=== PATIENT | female | born 1985 | race Caucasian/White ===

== ENCOUNTER 2016-09-09 16:36 | Emergency (ER) ==
[2016-09-09] MEDS ORDERED: DILAUDID IM ONE (17:48)
[2016-09-09] MEDS ORDERED: PHENERGAN IM ONE (17:48)
[2016-09-09] MEDS ORDERED: NS 1,000 ML IV ONE (17:58)
[2016-09-09] MEDS ORDERED: DILAUDID IV ONE (17:58)
[2016-09-09] MEDS ORDERED: PHENERGAN IV ONE (17:58)
[2016-09-09] MEDS ORDERED: SODIUM CHLORIDE 0.9% INJ ONE (17:58)
--- NOTE | 2016-09-09 18:01 | Diag Imaging Result Document ---
PROCEDURE NAME: WRIST COMPLETE RIGHT - 09/09/2016 RIGHT WRIST THREE VIEWS: FINDINGS: There is a comminuted fracture to the distal radius with compaction and dorsal angulation. There is approximately 1.5 cm of displacement. No definite fracture to the distal ulna. IMPRESSION: Comminuted fracture with dislocation at the wrist.
[2016-09-09] MEDS ORDERED: MARCAINE 0.5% INJ ONE (18:26)
--- NOTE | 2016-09-09 18:26 | PROVIDER DOCUMENTATION ---
HPI-Musculoskeletal Pain/Inj - GENERAL Source: patient - HX OF PRESENT ILLNESS-MUSKULOSKELTAL Quality of Pain: reports: aching Severity in ED: mild Onset/Duration: just prior to arrival Timing: still present Modifying Factors: improves with: nothing Any recent injury?: Yes (fell ) Similar Symptoms Previously?: No Recently seen or treated by another doctor?: No - FALL INJURY Location of Pain/Injury: reports: upper extremity (R wrist) Pain Radiation: reports: no radiation Reason for Fall: reports: lost balance Symptoms prior to fall:: reports: none Loss of Consciousness: no loss of consciousness Injury Associated Symptoms: reports: arm pain (R wrist pain). denies: back/ neck pain, chest pain, diaphoresis, dizziness, headaches, joint pain, muscle aches, nausea, puncture wound, shortness of breath, sensory/motor loss, snap/ crack/pop sensation, pain with inspiration, unable to bear weight, vomiting, weakness, trouble walking - UPPER EXTREMITY PAIN/INJURY Extremities Pain Location: wrist: right (pain ) Context / Method of Injury: reports: fell Associated Symptoms: reports: weakness in upper ext (R wrist). denies: muscle spasms, numbness in upper ext, sensory/motor loss, tingling in upper ext <Francoise Sifuentes - Last Filed: 09/09/16 19:06> <Richmond Kaye - Last Filed: 09/09/16 19:16> - GENERAL Chief Complaint: Extremity Injury Stated Complaint: WRIST INJURY Time Seen by Provider: 09/09/16 17:00 - HX OF PRESENT ILLNESS-MUSKULOSKELTAL Nature of Presenting Problem: Pt is 31 y/o F presents to the ED with R wrist pain. Pt states skating and fell and tried to catch herself with R hand. Pt denies LOC or head injury. (Francoise Sifuentes) Review of Systems - Adult - REVIEW OF SYSTEMS - ADULT Constitutional: denies: chills, fever Eyes: denies: blurred vision, double vision Ears, Nose, Mouth & Throat: denies: ear pain, nose pain, throat pain Cardiovascular: denies: chest pain, heart murmur, irregular heart rate Respiratory: denies: cough, shortness of breath, wheezing Gastrointestinal: denies: abdominal pain, diarrhea, nausea, vomiting Genitourinary: denies: dysuria, hematuria Musculoskeletal: reports: other (R wrist pain). denies: bone pain, joint pain, neck pain Integumentary: denies: hives, itching Neurological: denies: dizziness/vertigo, headache/migraines Psychiatric: reports: no symptoms reported Endocrine: reports: no symptoms reported Hematologic/Lymphatic: reports: no symptoms reported Allergic/Immunologic: reports: no symptoms reported All Other Systems: Reviewed and Negative <Cydney Sifuentesomi - Last Filed: 09/09/16 19:06> Past History - Adult - PAST MEDICAL HISTORY-ADULT Review of Records: reports: Nursing Assessment Review, Medications Reviewed, Social history reviewed & non-contributory. Major Childhood Illnesses: reports: denies history Cardiovascular: reports: denies history Respiratory: reports: denies history Gastrointestinal: reports: denies history Obstetrical/Gynecological: reports: denies history Genitourinary: reports: denies history Musculoskeletal: reports: denies history Neurological: reports: denies history Psychiatric: reports: denies history Endocrine/Immune: reports: denies history Other Conditions: reports: denies history - PRIOR SURGERIES/PROCEDURES Surgical/Procedure History: reports: reviewed, not pertinent - IMMUNIZATION STATUS Childhood Immunizations: See Nurse Assessment Flu Vaccine: See Nurse Assessment - FAMILY HISTORY Family History: reviewed, not pertinent - SOCIAL HISTORY Smoking: denies Substance Use: alcohol Alcohol Use Frequency: occasionally Number of drinks per typical drinking period:: 2 drinks Living Situation: family <Cydney Sifuentesomi - Last Filed: 09/09/16 19:06> Physical Exam-Injury Related - Physical Exam-Injury Related Initial Vital Signs Reviewed: Yes General Appearance: appears well, alert, no apparent distress Eyes: PERRL/EOMI, pink conjunctivae, fundi clear, no AV nicking Head, Ears, Nose, Mouth & Throat: normocephalic/atraumatic, moist mucous membranes, normal ENT inspection, TMs normal, pharynx normal Neck: non-tender, full range of motion, supple, normal inspection Respiratory: chest non-tender, lungs clear, normal breath sounds, no pleuratic chest pain, no respiratory distress, no accessory muscle use Cardiovascular: normal peripheral pulses, regular rate, rhythm, no edema, no gallop, no JVD, no murmur Peripheral Pulses: radial (R): 2+, radial (L): 2+ Abdominal Exam: normal bowel sounds, non tender, soft, no organomegaly, no pulsatile mass Lymphatic: no adenopathy Back Exam: normal inspection, no CVA tenderness, no vertebral tenderness Extremity: normal gait, no pedal edema, tenderness (R wrist). negative: normal range of motion (limited ROM to R wrist) Integumentary: normal color, warm/dry Neurologic: core inserter II-XII nml as tested, grossly normal, no motor/sensory deficits Psych/Mental Status: normal mood/affect, oriented x 3 <Francoise Sifuentes - Last Filed: 09/09/16 19:06> Progress - XRAY 1 XRAY: Right XRAY Study: Wrist Impression: Abnormal XRAY Interpretation: comminuted fracture with dislocation at the wrist - CONSULTS/PCP/HOSPITALIST Notification #1 *Consult/PCP/Hospitalist*: Dr. Bedoya Time Discussed: 18:23 (Dr. Bedoya stated to LEBRON Hinds he would like some traction on fx. ) Reason/Comments: LEBRON Hinds consulted with Dr. Bedoya about Pt Consult Disposition: other <Francoise Sifuentes - Last Filed: 09/09/16 19:06> - XRAY 2 XRAY: Right XRAY Study: Wrist XRAY Interpretation: minimal improvement in alignment <Richmond Kaye - Last Filed: 09/09/16 19:16> - PLAN OF CARE/RESULTS Progress/Plan/Lab Results: Orders Category Date Time Status Saline Loc NOW Care 09/09/16 17:58 Active WRIST COMPLETE RIGHT [RAD] Stat Exams 09/09/16 16:56 Draft CBC WITH DIFF [HEME] Stat Lab 09/09/16 18:00 Ordered COMPREHENSIVE METABOLIC PANEL [CHEM] Stat Lab 09/09/16 18:[address] Or[address]IME WITH INR PL [COAG] Stat Lab 09/09/16 18:[address] [COAG] Stat Lab 09/09/16 18:00 Ordered TYPE & SCREEN [BBK] Stat Lab 09/09/16 18:00 Ordered 0.9% Sodium Chloride Inj [Ns] 1,000 ml Med 09/09/16 17:58 Active IV 999 mls/hr Hydromorphone [Dilaudid] Med 09/09/16 17:48 Discontinued 1 mg IM NOW ONE Hydromorphone [Dilaudid] Med 09/09/16 17:58 Discontinued 1 mg IV NOW ONE Promethazine [Phenergan] Med 09/09/16 17:58 Discontinued 12.5 mg IV NOW ONE Promethazine [Phenergan] Med 09/09/16 17:48 Discontinued 25 mg IM NOW ONE Sodium Chloride 0.9% Med 09/09/16 17:58 Discontinued 10 ml INJ NOW ONE Vital Signs - 24 hr 09/09/16 16:43 Temperature 98.2 F Pulse Rate 71 Respiratory 18 Rate Blood Pressure 127/074 O2 Sat by Pulse 100 Oximetry Laboratory Tests 09/09/16 09/09/16 16:20 16:20 WBC 16.03 H RBC 4.46 Hgb 13.5 Hct 39.8 MCV 89.2 MCH 30.3 MCHC 33.9 RDW Std Deviation 13.1 Plt Count 298 MPV 10.1 Immature Gran % (Auto) 0.2 Neut % (Auto) 84.5 H Lymph % (Auto) 9.7 L [place] % (Auto) 5.2 Eos % (Auto) 0.2 Baso % (Auto) 0.2 Immature Gran # (Auto) 0.04 Neut # (Auto) 13.52 H Lymph # (Auto) 1.56 [place] # (Auto) 0.84 H Eos # (Auto) 0.04 Baso # (Auto) 0.03 PT 12.9 INR 0.94 APTT (Factor Assay) 22.4 L (Francoise Sifuentes) Laboratory Tests 09/09/16 09/09/16 16:20 16:20 WBC 16.03 H RBC 4.46 Hgb 13.5 Hct 39.8 MCV 89.2 MCH 30.3 MCHC 33.9 RDW Std Deviation 13.1 Plt Count 298 MPV 10.1 Immature Gran % (Auto) 0.2 Neut % (Auto) 84.5 H Lymph % (Auto) 9.7 L [place] % (Auto) 5.2 Eos % (Auto) 0.2 Baso % (Auto) 0.2 Immature Gran # (Auto) 0.04 Neut # (Auto) 13.52 H Lymph # (Auto) 1.56 [place] # (Auto) 0.84 H Eos # (Auto) 0.04 Baso # (Auto) 0.03 PT 12.9 INR 0.94 APTT (Factor Assay) 22.4 L Orders Category Date Time Status OCL Splint DIRECTED Care 09/09/16 18:26 Active Saline Loc NOW Care 09/09/16 17:58 Active WRIST COMPLETE RIGHT [RAD] Stat Exams 09/09/16 16:56 Draft CBC WITH DIFF [HEME] Stat Lab 09/09/16 16:20 Completed COMPREHENSIVE METABOLIC PANEL [CHEM] Stat Lab 09/09/16 16:[address] Received [address]IME WITH INR PL [COAG] Stat Lab 09/09/16 16:[address] [COAG] Stat Lab 09/09/16 16:20 Completed TYPE & SCREEN [BBK] Stat Lab 09/09/16 16:20 Received 0.9% Sodium Chloride Inj [Ns] 1,000 ml Med 09/09/16 17:58 Discontinued IV 999 mls/hr Bupivacaine 0.5% [Marcaine 0.5%] Med 09/09/16 18:26 Discontinued 10 ml INJ NOW ONE Bupivacaine Pf 0.5% [Marcaine 0.5% Pf] Med 09/09/16 18:34 Discontinued 10 ml .ROUTE .STK-MED ONE Hydromorphone [Dilaudid] Med 09/09/16 17:48 Discontinued 1 mg IM NOW ONE Hydromorphone [Dilaudid] Med 09/09/16 17:58 Discontinued 1 mg IV NOW ONE Promethazine [Phenergan] Med 09/09/16 17:58 Discontinued 12.5 mg IV NOW ONE Promethazine [Phenergan] Med 09/09/16 17:48 Discontinued 25 mg IM NOW ONE Sodium Chloride 0.9% Med 09/09/16 17:58 Discontinued 10 ml INJ NOW ONE Vital Signs Temp Pulse Resp BP Pulse Ox 09/09/16 16:43 98.2 F 71 18 127/074 100 No Known Allergies Allergy (Verified 09/27/13 15:25) b-Qdcpoog-Slt Estr/Ethin Estra [Seasonique 0.15-0.03-0.01 Tab] 1 each PO Laboratory 09/09/16 09/09/16 16:20 16:20 WBC 16.03 H RBC 4.46 Hgb 13.5 Hct 39.8 MCV 89.2 MCH 30.3 MCHC 33.9 RDW Std Deviation 13.1 Plt Count 298 MPV 10.1 Immature Gran % (Auto) 0.2 Neut % (Auto) 84.5 H Lymph % (Auto) 9.7 L [place] % (Auto) 5.2 Eos % (Auto) 0.2 Baso % (Auto) 0.2 Immature Gran # (Auto) 0.04 Neut # (Auto) 13.52 H Lymph # (Auto) 1.56 [place] # (Auto) 0.84 H Eos # (Auto) 0.04 Baso # (Auto) 0.03 PT 12.9 INR 0.94 APTT (Factor Assay) 22.4 L Neutrophilic leukocytosis is most likely due to a stress response from fracture rather than infectious cause in this context. Minimal improvement after reduction. Pt is NVI. Pain is much improved. Will have her f/u c orthopedics in the morning. She and her are in agreement c this plan. (Richmond Kaye) Procedures - SPLINTING Left Upper Extremity Other Location: wrist Pre-Procedure Neurovascular Exam: Intact Splint Application (Hand-Made): Sugar-Tong Applied By: ED Nurse Assisted By: Mid-level Post Procedure Neurovascular Exam: Intact Procedure Comment: No complications; pt tolerated well - DISLOCATION REDUCTION Right Wrist Other Location: distal radius Time-Out Verification Completed?: Yes Pre-Procedure Neurovascular Exam: Intact Conscious Sedation: No Reduction Attempts: 1 Post Procedure Neurovascular Exam: Intact Post Reduction Film: Deformity Reduced (minimal reduction) Post Reduction Splint Applied?: Yes Procedure Comment: Pt tolerated well. She is NVI. <Richmond Kaye - Last Filed: 09/09/16 19:16> Departure <Francoise Sifuentes - Last Filed: 09/09/16 19:06> - Departure Time of Disposition Order: 19:15 Certified Medical Emergency: Emergent <Richmond Kaye - Last Filed: 09/09/16 19:16> - Departure DIAGNOSIS: Distal radius fracture, right Qualifiers: Encounter type: initial encounter Fracture type: closed Fracture morphology: Colles' Qualified Code(s): S52.531A - Colles' fracture of right radius, initial encounter for closed fracture Disposition: HOME 01 Condition: Good Additional Instructions: Take medication as prescribed. Rest and elevate wrist. Follow up with [facility] tomorrow. Call their office at 8AM. Return to the ER for any new or worsening symptoms. ED Follow Up Instructions: You have been treated by a care provider in the Emergency Department. These instructions are being provided to you so you can have an understanding of how to care for yourself upon discharge. Upon discharge from the Emergency Department, you are responsible for making arrangements for follow-up care by a physician of your choice. Take all prescribed medications as directed. Return to the Emergency Department immediately for any new or worsening symptoms. You may call the Physician Referral phone number at [phone] to obtain a list of Physicians who are taking new patients. Prescriptions: Hydrocodone/APAP 7.5 mg/325 mg [[place]-7.5] 1 each PO Q6H PRN PRN #12 tablet PRN Reason: Pain Promethazine [Phenergan] 25 mg PO Q6H PRN PRN #20 tablet PRN Reason: Nausea Referrals: None,PCP [Primary Care Provider] - Ulises Salinas MD [STAFF PHYSICIAN] - Attestation - Scribe Verification/Attestation Scribe:: Francoise Sifuentes Acting as Scribe for:: Richmond Kaye Scribe documention review:: This chart was documented by a scribe and accurately reflects the service the provider performed and the decisions made by the provider. <Francoise Sifuentes - Last Filed: 09/09/16 19:06> - Physician/ TOAN Attestation Patient care was provided by Advanced Practice Provider:: Yes Advanced Practice Provider:: Richmond Kaye Advanced Practice Provider documentation review:: The Mid-level provider documentation, treatment plan and medical decision making was reviewed by the physician who agrees with all treatment and medical decision making by the [facility]. <Richmond Kaye - Last Filed: 09/09/16 19:16> Physician Attestation
[2016-09-09] MEDS ORDERED: MARCAINE 0.5% PF ONE (18:34)
[2016-09-09 18:45] LABS: MANUAL DIFF NEEDED? NO
[2016-09-09 18:47] LABS: BASO% 0.2 % (0.0-0.8); EOS# 0.04 X1000 (0.0-0.7); EOS% 0.2 % (0.0-10.0); HEMATOCRIT 39.8 % (37.0-47.0); HEMOGLOBIN 13.5 g/dL (12.0-16.0); IMM GRAN# 0.04 X1000 (0.0-0.04); IMM GRAN% 0.2 % (0.0-0.5); LYMPH# 1.56 X1000 (1.2-3.4); LYMPH% 9.7 % (20.5-51.1); MCH 30.3 PG (27-31); MCHC 33.9 g/dL (33-37); MCV 89.2 FL (81-99); MONO# 0.84 X1000 (0.11-0.59); MONO% 5.2 % (1.7-9.3); MPV 10.1 FL (7.4-10.4); NEUT% 84.5 % (42.2-75.2); PLT 298 X1000 (130-400); RBC 4.46 XMIL (4.2-5.4)
[2016-09-09 19:04] LABS: INR 0.94 (0.86-1.15); PROTIME 12.9 Seconds (12.1-15.5); PTT PL 22.4 Seconds (22.6-43.9)
[2016-09-09 19:12] LABS: AGAP 12; ALBUMIN 4.2 g/dL (3.5-5.0); ALKALINE PHOSPHATASE 50 U/L (32-104); BUN 12 mg/dL (8-22); CALCIUM 9.5 mg/dL (8.8-10.2); CHLORIDE 101 mmol/L (98-107); COSMO 275; GOT 26 U/L (10-30); GPT 22 U/L (10-36); POTASSIUM 3.2 mmol/L (3.5-5.1); SODIUM 137 mmol/L (136-145); TCO2 24 mmol/L (25-35); TOTAL PROTEIN 6.5 g/dL (6.3-8.3)
[2016-09-09 19:31] VITALS: BP 120/80
--- NOTE | 2016-09-10 07:05 | Diag Imaging Result Document ---
PROCEDURE NAME: WRIST 2 VIEWS-RIGHT - 09/09/2016 POSTREDUCTION RIGHT WRIST, TWO VIEWS: COMPARISON: Compared to films taken earlier. FINDINGS: An external cast has been placed. There is improved alignment to the comminuted distal radial fracture although there continues to be dorsal angulation and over a centimeter of displacement of the fracture.
== END 2016-09-09 19:46 | disposition home or self-care (01) ==
LOC: P.ED 16:36
DX: S52.531A Colles' fracture of right radius, initial encounter for closed fracture (principal); M25.531 Pain in right wrist; M62.81 Muscle weakness (generalized); V00.121A Fall from non-in-line roller-skates, initial encounter
CPT/HCPCS: 80053; 81025; 85025; 85610; 85730; 86850; 86900; 86901; 96361; 96374; 96375; J1170; J2550; J7030; S0020